=== PATIENT | female | born 1940 | race Caucasian/White ===

== ENCOUNTER → 2018-03-15 10:47 | Outpatient (CLI) | payer MEDICARE | END | disposition home or self-care (01) | LOC: D.CT 10:47 | DX: J01.00 Acute maxillary sinusitis, unspecified (principal) ==

== ENCOUNTER → 2018-07-04 22:04 | Outpatient (CLI) | payer MEDICARE | END | disposition home or self-care (01) | LOC: D.MAMMO 12:00 | DX: N63.22 Unspecified lump in the left breast, upper inner quadrant (principal) ==

== ENCOUNTER → 2018-08-03 08:25 | Outpatient (CLI) | payer MEDICARE ==
[~2018-08-03 08:25] MED LIST: AVAPRO300 MG PO; BASAGLAR K100 UNIT/1 SC; DILAUDID2 MG PO; ELAVIL10 MG PO; GLIMEPIRIDE4 MG PO; HCTZ25 MG PO; JANUVIA50 MG PO; VOLTAREN75 MG PO; ZOCOR40 MG PO
[2018-08-28 08:51] VITALS: BMI 28.6
== END | disposition home or self-care (01) ==
LOC: D.MAMMO 08:00
DX: N63.22 Unspecified lump in the left breast, upper inner quadrant (principal)

== ENCOUNTER 2018-08-28 06:40 | Day surgery (SDC) | payer MEDICARE ==
[2018-08-27 14:26] LABS: BASOPHILS 0.3 % (0-2); EOSINOPHILS 2.1 % (0-7); HEMATOCRIT 34.8 % (36.0-48.0); HEMOGLOBIN 11.4 g/dL (12-16); IMMATURE GRANULOCYTES 0.3 % (0-5); LYMPHOCYTES 25.9 % (15-50); MCH 29.6 pg (26.0-34.0); MCHC 32.8 g/dL (31.0-37.0); MCV 90.4 fL (80.0-100.0); MEAN PLATELET VOLUME 10.7 fL (7.4-10.4); NEUTROPHILS 66.4 % (40-80); PLATELET COUNT 225 10x3/uL (130-400); RBC 3.85 10x6/uL (4.00-5.40); RDW 13.3 % (11.5-14.5); WBC 7.6 10x3/uL (4.8-10.8)
[2018-08-27 14:29] LABS: CALCIUM 8.9 mg/dL (8.5-10.1); CARBON DIOXIDE 26.8 mmol/L (21.0-32.0); CREATININE - SERUM 1.4 mg/dL (0.6-1.3); POTASSIUM - SERUM 3.8 mmol/L (3.5-5.1)
[2018-08-27 14:31] LABS: APTT 27.8 SECONDS (22.8-39.4); INR 1.05 (0.85-1.17); PROTIME 13.3 SECONDS (11.6-15.0)
[~2018-08-28] VITALS: Ht 165.1 cm; Wt 78.0 kg
--- NOTE | ~2018-08-28 | OP ---
PATIENT NAME: UR INGRAM MEDICAL RECORD: [id number] :41 LOCATION:[facility] ADMISSION DATE: SURGEON: LUCILA FOSTER MD DATE OF OPERATION: 08/28/2018 PREOPERATIVE DIAGNOSES: 1. Left breast invasive ductal carcinoma. 2. Hypercholesterolemia. 3. Hypertension. 4. Diabetes mellitus. 5. Milton antibody. POSTOPERATIVE DIAGNOSES: 1. Left breast invasive ductal carcinoma. 2. Hypercholesterolemia. 3. Hypertension. 4. Diabetes mellitus. 5. Milton antibody. PROCEDURE: Left upper inner lumpectomy with left axillary sentinel lymph node biopsy. SURGEON: Lucila Foster MD REPORT OF PROCEDURE: The patient's left chest was prepped and draped in sterile fashion. A skin incision was made on the superior aspect of the nipple areolar complex in a circular fashion. Electrocautery was used to dissect through the subcutaneous tissues. I could palpate the mass. We went inferior and above the mass. Eventually, we were able to completely around the mass using electrocautery down to the pectoral fascia. Once the mass and the surrounding tissue were completely excised, then the specimen was marked and sent off for permanent. The subcutaneous tissues were inspected and any bleeding that was found was treated with electrocautery or with 2-0 silk ties. The wound was then irrigated out with sterile water. The subcutaneous tissues were reapproximated with interrupted 3-0 Vicryl and the skin was closed with running subcutaneous 5-0 Monocryl. We approached the left axilla. Using a Neoprobe, we found the correct area and a transverse incision was made with a #15 blade. Electrocautery was not used to dissect through subcutaneous tissue and axillary fascia. Once we penetrated the axillary fascia, then we pulled up a collection of lymph nodes. The sentinel lymph node was found with reading of 1000. Once we removed this, it was sent off for permanent. We inspected the remainder of the axilla and found no other readings that were appropriate for removal. At this point, the wound was irrigated out with normal saline. The subcutaneous tissues and axillary fascia were reapproximated with interrupted 3-0 Vicryl and the skin was closed with running subcutaneous 5-0 Monocryl. A total of 10 mL of 0.25% Marcaine plain was infused into the surrounding tissues and the wound was dressed appropriately. COMPLICATIONS: None. CONDITION: Stable. ANESTHESIA: General endotracheal and local. BLOOD LOSS: 50 mL. OPERATIVE REPORT [id number] RU INGRAM TRANSINT:[id number] Voice Confirmation ID: [id number] DOCUMENT ID: [id number] LUCILA FOSTER MD at 1441 CC: EMANUEL BELL MD [id number] DICTATION DATE: 08/28/18 1629 MANAGER OF SUPPLY CHAIN: 08/28/18 1702 [facility] [place] 08/28/[address] [address]
[~2018-08-28 06:40] MED LIST changes: -DILAUDID2 MG PO
[2018-08-28 08:51] VITALS: BP 171/91; Ht 165.1 cm; Wt 78.0 kg
[2018-08-28] MEDS ORDERED: DILAUDID2 MG PO (16:24)
== END 2018-08-28 20:45 | disposition home or self-care (01) ==
LOC: D.OPS 06:40 → D.PAN 08:00 → D.NM 09:00 → D.OPS 09:00 → D.PAN 09:00 → D.OPS 20:45
PROVIDERS: Anesthesiology; Surgery
DX: C79.81 Secondary malignant neoplasm of breast (principal); I10 Essential (primary) hypertension; E11.9 Type 2 diabetes mellitus without complications

== ENCOUNTER → 2019-08-14 10:00 | Outpatient (CLI) | payer MEDICARE ==
[2018-08-28 08:51] VITALS: BMI 28.6
[~2019-08-14 10:00] MED LIST changes: +DILAUDID2 MG PO
== END | disposition home or self-care (01) ==
LOC: D.MAMMO 08-01 13:30
PROVIDERS: ATTEND Surgery
DX: C50.212 Malignant neoplasm of upper-inner quadrant of left female breast (principal)

== ENCOUNTER 2019-09-27 08:00 | Outpatient (CLI) | payer MEDICARE ==
[2018-08-28 08:51] VITALS: BMI 28.6
== END 2019-09-27 23:59 | disposition home or self-care (01) ==
LOC: D.MAMMO 08:00
PROVIDERS: ATTEND Surgery
DX: R92.1 Mammographic calcification found on diagnostic imaging of breast (principal); Z85.3 Personal history of malignant neoplasm of breast

== ENCOUNTER 2019-11-12 08:00 | Outpatient (CLI) | payer MEDICARE ==
[2018-08-28 08:51] VITALS: Wt 79.4 kg
[~2019-11-12 08:00] MED LIST changes: +FEMARA2.5 MG PO; +LANTUS SOLOSTAR INJ
== END 2019-11-12 08:01 | disposition home or self-care (01) ==
LOC: D.MAMMO 08:00 → D.PAN 08:00 → D.OPS 08:00 → EDSTATUS 08:00 → D.OPS 08:01
PROVIDERS: ATTEND Surgery
DX: D05.12 Intraductal carcinoma in situ of left breast (principal); C50.212 Malignant neoplasm of upper-inner quadrant of left female breast

== ENCOUNTER → 2019-11-20 10:33 | Outpatient (CLI) | payer MEDICARE ==
[2018-08-28 08:51] VITALS: BMI 28.6
[~2019-11-20 10:33] MED LIST changes: +HYDROCODON-ACE1 EA10 PO; +VALIUM 2 MG TAB2 MG PO
== END | disposition home or self-care (01) ==
LOC: D.US 10:33
PROVIDERS: ATTEND Legal Medicine
DX: R60.0 Localized edema (principal)

== ENCOUNTER 2019-11-22 05:22 | Day surgery (SDC) | payer MEDICARE ==
[~2019-11-22] VITALS: Ht 165.1 cm; Wt 79.4 kg
[~2019-11-22 05:22] MED LIST changes: -HYDROCODON-ACE1 EA10 PO; -VALIUM 2 MG TAB2 MG PO
[2019-11-22 06:16] LABS: ANION GAP 11.1 mmol/L (8-16); CALCIUM 8.7 mg/dL (8.5-10.1); CARBON DIOXIDE 29.6 mmol/L (21.0-32.0); CREATININE - SERUM 1.2 mg/dL (0.6-1.3); POTASSIUM - SERUM 3.7 mmol/L (3.5-5.1)
[2019-11-22 06:48] VITALS: BP 169/68; Ht 165.1 cm; Wt 79.4 kg
[2019-11-22 07:16] LABS: APTT 29.1 SECONDS (22.8-39.4); BASOPHILS 0.3 % (0-2); EOSINOPHILS 2.4 % (0-7); HEMATOCRIT 36.7 % (36.0-48.0); HEMOGLOBIN 11.8 g/dL (12-16); IMMATURE GRANULOCYTES 0.2 % (0-5); INR 1.08 (0.85-1.17); LYMPHOCYTES 20.2 % (15-50); MCH 29.9 pg (26.0-34.0); MCHC 32.2 g/dL (31.0-37.0); MCV 93.1 fL (80.0-100.0); MEAN PLATELET VOLUME 10.7 fL (7.4-10.4); MONOCYTES 7.3 % (2-11); NEUTROPHILS 69.6 % (40-80); PLATELET COUNT 255 10x3/uL (130-400); PROTIME 13.9 SECONDS (11.6-15.0); RBC 3.94 10x6/uL (4.00-5.40); RDW 13.5 % (11.5-14.5); WBC 6.6 10x3/uL (4.8-10.8)
--- NOTE | 2019-11-22 07:27 | NUR ---
[address] FOSTER FOR AN UPDATED H&P
--- NOTE | 2019-11-22 07:36 | NUR ---
[address] FOSTER AND HE WILL UPDATE H&P
[2019-11-22] MEDS ORDERED: HYDROCODON-ACE1 EA10 PO (10:32)
[2019-11-22] MEDS ORDERED: VALIUM 2 MG TAB2 MG PO (10:49)
--- NOTE | 2019-11-22 11:49 | NUR ---
1138-REPORT RECEIVED FROM RUPAL ANTONIO. AWAKE AND ALERT,VSS,REPORTS PAIN 4/10. REQUEST PAIN MEDICATION PRIOR TO DISCHARGE. DOES NOT WANT TO EAT OATMEAL TRAY WE HAVE. DO NOT WANT JELLO WE HAVE OR PUDDING. HAVE ORDERED CREAM OF CHICKEN TRAY. CL IN EASY REACH. FAMILY AT BEDSIDE.
--- NOTE | 2019-11-22 12:33 | NUR ---
1145-PT IS ACCEPTING PEANUT BUTTER AND JULIEN CRACKERS. VSS.
--- NOTE | 2019-11-22 12:34 | NUR ---
1153-NORCO 10/325MG 1 BY MOUTH ADMINISTERED FOR PAIN RATES 4/10 TO INCISION SITE,DESCRIBES THROBBING
--- NOTE | 2019-11-22 12:35 | NUR ---
1210-REVIEWED POST OPERATIVE INSTRUCTIONS AND FOLLOW UP APPOINTMENT. VERBALIZED UNDERSTANDING. NO CHANGES IN DRESSING.
--- NOTE | 2019-11-22 12:36 | NUR ---
1215-DISCHARGE CRITERIA MET. ESCORTED OUT BY STAFF WITH DAUGHTER AWAITING TO DISCHARGE HOME
--- NOTE | 2019-11-26 10:48 | OP ---
PATIENT NAME: RU INGRAM MEDICAL RECORD: [id number] :41 LOCATION:[facility] ADMISSION DATE: SURGEON: BRY FOSTER MD DATE OF OPERATION: 11/22/2019 PREOPERATIVE DIAGNOSES: 1. Ductal carcinoma in situ of the left breast. 2. Hypertension. 3. Diabetes mellitus. 4. Hypercholesterolemia. POSTOPERATIVE DIAGNOSES: 1. Ductal carcinoma in situ of the left breast. 2. Hypertension. 3. Diabetes mellitus. 4. Hypercholesterolemia. PROCEDURE: Needle localization of left upper outer quadrant lumpectomy. SURGEON: Bry Foster MD REPORT OF PROCEDURE: The patient had a needle localization performed prior to surgery. The patient was taken to the operating room where the left breast was prepped and draped in sterile fashion. At the time of her needle localization, they placed a wire near the clip from the previous biopsy. There was also noted to be some more calcifications present laterally so another wire was placed near these. The 2 wires were in close proximity. Incision was made on the superior lateral aspect of the left breast at about the 1-2 o'clock position. Electrocautery was used to dissect through the subcutaneous tissues and we eviscerated these wires through the opening. A large core of tissue was removed from the left breast centrally with what became a left upper outer quadrantectomy. A portion of the patient's axilla was also incorporated in this, so we can make sure to get out laterally where these calcifications were present. Once the specimen was completely removed, it was marked appropriately and sent to radiology, where the wires were noted to be intact and the clip and calcifications were present in the specimen. We inspected the wound bed. The specimen was taken all the way down to the patient's pectoral fascia. We inspected for any bleeding and any that was found was treated with electrocautery. At this point, we irrigated out the wound with sterile water and could see no sign of any active bleeding. The subcutaneous tissues were reapproximated with interrupted 3-0 Vicryl and the skin was closed with running subcutaneous 5-0 Monocryl. A total of 10 mL of 0.25% Marcaine with epinephrine was infused into the surrounding tissues and the wound was dressed appropriately. COMPLICATIONS: None. CONDITION: Stable. ANESTHESIA: General endotracheal and local. BLOOD LOSS: 50 mL. TRANSINT:[id number] Voice Confirmation ID: [id number] DOCUMENT ID: [id number] OPERATIVE REPORT [id number] RU INGRAM CHRISTIAN MD at 1048 CC: NGUYỄN RODRIGUEZ MD and EMANUEL BELL MD [id number] DICTATION DATE: 11/22/19 1036 FIRE INVESTIGATOR: 11/22/19 1430 [facility] 11/22/19 [place] [id number] [place] [id number]
== END 2019-11-22 12:15 | disposition home or self-care (01) ==
LOC: D.PAN 05:22 → D.MAMMO 08:00 → D.PAN 12:15
PROVIDERS: Anesthesiology; ATTEND Surgery
DX: D05.12 Intraductal carcinoma in situ of left breast (principal); I10 Essential (primary) hypertension; E11.9 Type 2 diabetes mellitus without complications; E78.00 Pure hypercholesterolemia, unspecified; Z79.84 Long term (current) use of oral hypoglycemic drugs

== ENCOUNTER → 2020-04-15 14:28 | Outpatient (CLI) | payer MEDICARE ==
[2019-11-22 06:48] VITALS: BMI 29.1
[~2020-04-15 14:28] MED LIST changes: +HYDROCODON-ACE1 EA10 PO; +VALIUM 2 MG TAB2 MG PO
[2020-04-15 15:30] LABS: MCH 29.5 pg (26.0-34.0); MCHC 31.6 g/dL (31.0-37.0); MCV 93.4 fL (80.0-100.0); MEAN PLATELET VOLUME 10.7 fL (7.4-10.4); PLATELET COUNT 273 10x3/uL (130-400); RBC 4.07 10x6/uL (4.00-5.40); RDW 13.9 % (11.5-14.5); WBC 6.7 10x3/uL (4.8-10.8)
[2020-04-15 15:50] LABS: ANION GAP 14.3 mmol/L (8-16); BILIRUBIN - TOTAL 0.4 mg/dL (0.2-1.3); CALCIUM 8.7 mg/dL (8.5-10.1); CREATININE - SERUM 1.4 mg/dL (0.6-1.3); POTASSIUM - SERUM 4.3 mmol/L (3.5-5.1); PROTEIN - SERUM 7.2 g/dL (6.4-8.2)
[2020-04-15 17:49] LABS: EOSINOPHILS 1 % (0-7); LYMPHOCYTES 20 % (15-50); MONOCYTES 3 % (2-11); NEUTROPHILS 76 % (40-80); PLATELET ESTIMATE NORMAL
== END | disposition home or self-care (01) ==
LOC: D.LABREF 14:28
PROVIDERS: ATTEND Legal Medicine
DX: C50.212 Malignant neoplasm of upper-inner quadrant of left female breast (principal)

== ENCOUNTER → 2020-08-20 22:52 | Outpatient (CLI) | payer MEDICARE ==
[2019-11-22 06:48] VITALS: BMI 29.1
== END | disposition home or self-care (01) ==
LOC: D.MAMMO 10:30
PROVIDERS: ATTEND Surgery
DX: C50.919 Malignant neoplasm of unspecified site of unspecified female breast (principal)